=== PATIENT | male | born 1985 | race Caucasian/White ===

== ENCOUNTER 2020-09-23 20:24 | Emergency (ER) | payer OTHER ==
[~2020-09-23] VITALS: Ht 190.5 cm; Wt 100.2 kg
[~2020-09-23 20:24] MED LIST: DEXT10TA7 PO
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
[2020-09-23] MEDS ORDERED: AMOX1TAB12 PO (20:57)
[2020-09-23] MEDS ORDERED: HYDR-3237 PO (20:57)
[2020-09-23] MEDS ORDERED: DIPHENHYDRAMINE 25 MG CAPSULE PO ONE (21:00)
[2020-09-23] MEDS ORDERED: HYDROmorphone 1 MG/ML, 1ML INJ IM ONE (21:00)
[2020-09-23] MEDS ORDERED: HYDROmorphone 1 MG/ML, 1ML INJ ONE (21:01)
[2020-09-23] MEDS ORDERED: DIPHENHYDRAMINE 25 MG CAPSULE ONE (21:01)
--- NOTE | 2020-09-23 21:11 | NUR ---
BENADRYL AND DILAUDID GIVEN PER EMAR.
--- NOTE | 2020-09-23 22:02 | NUR ---
PER SPOUSE, PT HAS DECREASED PAIN. PT CURRENTLY SLEEPING; RESP EVEN UNLABORED.
--- NOTE | 2020-09-23 22:05 | NUR ---
PT AWAITING DISCHARGE. PT ENDORSED TO BRIAN JAMES
[2020-09-23 22:28] VITALS: BP 135/74
== END 2020-09-23 22:31 | disposition home or self-care (01) ==
LOC: ED 21:28
DX: S61.431A Puncture wound without foreign body of right hand, initial encounter (principal); W22.8XXA Striking against or struck by other objects, initial encounter; Y93.89 Activity, other specified; Y92.009 Unspecified place in unspecified non-institutional (private) residence as the place of occurrence of the external cause; Y99.8 Other external cause status
CPT/HCPCS: 73130; 96372; 99283; J1170; Q0163

== ENCOUNTER 2020-09-25 11:58 | Inpatient (IN) | payer OTHER ==
[~2020-09-25] VITALS: Ht 190.5 cm; Wt 101.0 kg
[~2020-09-25 11:58] MED LIST changes: +AMOX1TAB12 PO; +HYDR-3237 PO
[2020-09-25] MEDS ORDERED: SODIUM CHLORIDE FLUSH 10ML SYR IVF ONE (12:30)
[2020-09-25 13:15] LABS: BASOPHILS % (AUTO) 0 % (0-1); EOSINOPHILS % (AUTO) 1 % (1-7); LYMPHOCYTES % (AUTO) 17 % (22-44); MEAN CORPUSCULAR HEMOGLOBIN 32.2 pg (27.5-34.5); MEAN CORPUSCULAR HGB CONC 35.1 g/dL (33.2-36.2); MEAN PLATELET VOLUME 8.9 fL (7.4-10.4); MONOCYTES % (AUTO) 8 % (2-9); NEUTROPHILS % (AUTO) 74 % (42-75); PLATELET COUNT 236 x10^3/uL (130-400); RED BLOOD COUNT 4.91 x10^6/uL (4.38-5.82); RED CELL DISTRIBUTION WIDTH 12.4 % (9.4-14.8)
[2020-09-25 13:17] LABS: MD NO
[2020-09-25 13:23] LABS: ANION GAP 5 mmol/L (5-15); CHLORIDE 107 mmol/L (98-107); CREATININE 0.98 mg/dL (0.7-1.3)
--- NOTE | 2020-09-25 14:15 | NUR ---
TRUNG RN: REVITAL, VERBALIZED NO NEEDS AT THIS TIME
--- NOTE | 2020-09-25 17:27 | NUR ---
PT HOLDING OFF ON XRAY AT THIS TIME; PT HAD XRAY OF HAND ON FRIDAY; REDNESS & SWELLING HAS GOTTEN WORSE SINCE THEN
[2020-09-25] MEDS ORDERED: MORPHINE SULFATE 4 MG/ML, 1ML IVPush PRN (19:00)
[2020-09-25] MEDS ORDERED: SODIUM CHLORIDE 0.9% 1,000ML IVBOLUS ONE (19:00)
[2020-09-25] MEDS ORDERED: ONDANSETRON 2MG/ML, 2ML IVPush ONE (19:00)
[2020-09-25] MEDS ORDERED: AMPICILLIN/SULBACTAM 3 GM in SODIUM CHLORIDE 0.9% 100 ML IV ONE (19:00)
[2020-09-25] MEDS ORDERED: VANCOMYCIN PER PHARMACY MC ONE (19:00)
[2020-09-25] MEDS ORDERED: VANCOMYCIN 2,000 MG in SODIUM CHLORIDE 0.9% 500 ML IV ONE (19:00)
--- NOTE | 2020-09-25 19:16 | NUR ---
Report to BRIAN Cordova
[2020-09-25] MEDS ORDERED: MORPHINE SULFATE 4 MG/ML, 1ML ONE (19:28)
[2020-09-25] MEDS ORDERED: ONDANSETRON 2MG/ML, 2ML ONE ×2 (19:28→21:20)
[2020-09-25] MEDS ORDERED: PROMETHAZINE 25 MG/ML, 1ML IVPush PRN (20:00)
[2020-09-25] MEDS ORDERED: hydrALAzine 20 MG/ML, 1ML IV PRN (20:00)
[2020-09-25] MEDS ORDERED: FENTANYL PF 100 MCG/2ML IV PRN (20:00)
[2020-09-25] MEDS ORDERED: HALOPERIDOL 5 MG/ML IV PRN (20:00)
[2020-09-25] MEDS ORDERED: MEPERIDINE/PF 25MG/0.5ML IVPush PRN (20:00)
[2020-09-25] MEDS ORDERED: LABETALOL 5MG/ML, 20ML IV PRN (20:00)
[2020-09-25] MEDS ORDERED: OXYcodone 5 MG/5 ML ORAL.SOL UDC PO PRN ×2 (20:00→23:45)
[2020-09-25] MEDS ORDERED: HYDROmorphone 1 MG/ML, 1ML INJ IVPush PRN (20:00)
[2020-09-25] MEDS ORDERED: DIPHENHYDRAMINE 50 MG/ML, 1ML IVPush PRN (20:00)
[2020-09-25] MEDS ORDERED: HYDROmorphone 1 MG/ML, 1ML INJ ONE (20:08)
[2020-09-25] MEDS ORDERED: VANCOMYCIN PER PHARMACY MC PRN (20:30)
[2020-09-25] MEDS ORDERED: HYDROmorphone 1 MG/ML, 1ML INJ IV ONE (20:30)
[2020-09-25] MEDS ORDERED: MIDAZOLAM 1 MG/ML, 2ML ONE (20:48)
[2020-09-25] MEDS ORDERED: FENTANYL PF 250 MCG/5ML ONE (20:48)
[2020-09-25] MEDS ORDERED: CEFAZOLIN 1,000 MG ONE (21:20)
[2020-09-25] MEDS ORDERED: PROPOFOL 10 MG/ML, 20ML ONE (21:20)
[2020-09-25] MEDS ORDERED: DEXAMETHASONE 4 MG/ML, 1ML ONE (21:20)
[2020-09-25] MEDS ORDERED: PHARMACOKINETIC CONSULTATION MC ONE (21:30)
[2020-09-25] MEDS ORDERED: PHARMACOKINETIC MONITORING MC PRN (21:30)
[2020-09-25 22:59] VITALS: BP 132/81
[2020-09-25] MEDS ORDERED: HYDROmorphone 2 MG/ML, 1ML IVPush PRN (23:30)
[2020-09-25] MEDS: KETOROLAC 30 MG/1 ML IM SCH (23:44)
[2020-09-25] MEDS ORDERED: CEFAZOLIN PMX 2GM/50ML 50 ML IVPB SCH (23:45)
[2020-09-25] MEDS ORDERED: HYDROcodone/APAP 7.5-325MG/15ML UDC PO PRN (23:45)
[2020-09-25] MEDS ORDERED: ONDANSETRON 2MG/ML, 2ML IV PRN (23:45)
[2020-09-26 00:01] VITALS: BP 120/71
[2020-09-26] MEDS: CEFAZOLIN PMX 2GM/50ML 50 ML IVPB SCH ×4 (00:16→23:57)
[2020-09-26] MEDS ORDERED: HYDROmorphone 2 MG/ML, 1ML IVPush PRN (01:00)
[2020-09-26] MEDS ORDERED: ONDANSETRON ODT 4 MG PO PRN (01:00)
[2020-09-26] MEDS ORDERED: AMPICILLIN/SULBACTAM 3 GM in SODIUM CHLORIDE 0.9% 100 ML IV SCH (01:00)
[2020-09-26] MEDS ORDERED: MELATONIN 5 MG TABLET PO PRN (01:00)
[2020-09-26] MEDS ORDERED: BISACODYL 10 MG SUPP PR PRN (01:00)
[2020-09-26] MEDS ORDERED: ACETAMINOPHEN 325 MG TABLET PO PRN (01:00)
[2020-09-26 04:13] VITALS: BP 112/66
[2020-09-26 07:41] VITALS: BP 102/56
[2020-09-26] MEDS: DOCUSATE 100 MG CAPSULE PO SCH ×2 (07:41→21:00)
[2020-09-26] MEDS: KETOROLAC 30 MG/1 ML IM SCH ×2 (07:41→16:13)
[2020-09-26] MEDS: VANCOMYCIN 1,900 MG in SODIUM CHLORIDE 0.9% 250 ML IV SCH ×2 (09:16→17:19)
[2020-09-26] MEDS ORDERED: VANCOMYCIN 1,900 MG in SODIUM CHLORIDE 0.9% 250 ML IV SCH (09:30)
[2020-09-26 12:48] VITALS: BP 121/68
[2020-09-26] MEDS: ENOXAPARIN 40 MG/0.4 ML SQ SCH (16:54)
[2020-09-26 18:46] VITALS: BP 116/62
[2020-09-27] MEDS: VANCOMYCIN 1,900 MG in SODIUM CHLORIDE 0.9% 250 ML IV SCH ×3 (01:12→17:09)
[2020-09-27 04:00] VITALS: BP 107/64
[2020-09-27 06:05] LABS: BASOPHILS % (AUTO) 1 % (0-1); EOSINOPHILS % (AUTO) 2 % (1-7); LYMPHOCYTES % (AUTO) 41 % (22-44); MEAN CORPUSCULAR HEMOGLOBIN 31.3 pg (27.5-34.5); MEAN CORPUSCULAR HGB CONC 33.8 g/dL (33.2-36.2); MEAN PLATELET VOLUME 9.1 fL (7.4-10.4); MONOCYTES % (AUTO) 6 % (2-9); NEUTROPHILS % (AUTO) 50 % (42-75); PLATELET COUNT 214 x10^3/uL (130-400); RED BLOOD COUNT 4.23 x10^6/uL (4.38-5.82); RED CELL DISTRIBUTION WIDTH 12.5 % (9.4-14.8)
[2020-09-27 06:08] LABS: MD NO
[2020-09-27 06:16] LABS: CHLORIDE 113 mmol/L (98-107)
[2020-09-27 06:25] LABS: ALANINE AMINOTRANSFERASE 26 U/L (12-78); ALKALINE PHOSPHATASE 44 U/L (45-117); ANION GAP 4 mmol/L (5-15); BILIRUBIN,TOTAL 0.5 mg/dL (0.2-1.0); CALCIUM 8.4 mg/dL (8.5-10.1); CREATININE 0.87 mg/dL (0.7-1.3); TOTAL PROTEIN 6.1 g/dL (6.4-8.2)
[2020-09-27] MEDS: CEFAZOLIN PMX 2GM/50ML 50 ML IVPB SCH ×3 (08:10→23:44)
[2020-09-27] MEDS: DOCUSATE 100 MG CAPSULE PO SCH ×2 (08:10→21:00)
[2020-09-27 08:23] VITALS: BP 118/73
[2020-09-27] MEDS ORDERED: CHOLECALCIFEROL 5,000u TAB ONE (11:52)
[2020-09-27 14:07] VITALS: BP 125/74
[2020-09-27] MEDS: ENOXAPARIN 40 MG/0.4 ML SQ SCH (15:44)
[2020-09-27 19:10] VITALS: BP 115/65
[2020-09-28] MEDS: VANCOMYCIN 1,900 MG in SODIUM CHLORIDE 0.9% 250 ML IV SCH ×2 (01:12→09:17)
[2020-09-28 02:39] VITALS: BP 117/71
[2020-09-28 06:23] LABS: BASOPHILS % (AUTO) 1 % (0-1); EOSINOPHILS % (AUTO) 4 % (1-7); LYMPHOCYTES % (AUTO) 46 % (22-44); MEAN CORPUSCULAR HEMOGLOBIN 31.7 pg (27.5-34.5); MEAN CORPUSCULAR HGB CONC 34.6 g/dL (33.2-36.2); MEAN PLATELET VOLUME 8.6 fL (7.4-10.4); MONOCYTES % (AUTO) 7 % (2-9); NEUTROPHILS % (AUTO) 42 % (42-75); PLATELET COUNT 246 x10^3/uL (130-400); RED BLOOD COUNT 4.45 x10^6/uL (4.38-5.82); RED CELL DISTRIBUTION WIDTH 12.4 % (9.4-14.8)
[2020-09-28 06:24] LABS: MD NO
[2020-09-28 06:33] LABS: ALBUMIN 3.2 g/dL (3.4-5.0); ANION GAP 5 mmol/L (5-15); CALCIUM 8.5 mg/dL (8.5-10.1); CHLORIDE 109 mmol/L (98-107)
[2020-09-28 06:36] LABS: ALANINE AMINOTRANSFERASE 38 U/L (12-78); ALKALINE PHOSPHATASE 49 U/L (45-117); BILIRUBIN,TOTAL 0.6 mg/dL (0.2-1.0); CREATININE 0.84 mg/dL (0.7-1.3); TOTAL PROTEIN 6.2 g/dL (6.4-8.2)
[2020-09-28 07:46] VITALS: BP 114/69
[2020-09-28] MEDS: CEFAZOLIN PMX 2GM/50ML 50 ML IVPB SCH (08:07)
[2020-09-28] MEDS: DOCUSATE 100 MG CAPSULE PO SCH ×2 (09:00→20:06)
[2020-09-28 13:06] VITALS: BP 102/74
[2020-09-28] MEDS: ERTAPENEM 1 GM in SODIUM CHLORIDE 0.9% 50 ML IV SCH (16:32)
[2020-09-28] MEDS: ENOXAPARIN 40 MG/0.4 ML SQ SCH (16:37)
[2020-09-28 19:06] VITALS: BP 108/69
[2020-09-29 01:36] VITALS: BP 111/69
[2020-09-29 07:10] VITALS: BP 119/72
[2020-09-29 07:12] LABS: ANION GAP 3 mmol/L (5-15); CHLORIDE 108 mmol/L (98-107); CREATININE 0.88 mg/dL (0.7-1.3)
[2020-09-29 07:13] LABS: BASOPHILS % (AUTO) 1 % (0-1); EOSINOPHILS % (AUTO) 3 % (1-7); LYMPHOCYTES % (AUTO) 36 % (22-44); MEAN CORPUSCULAR HEMOGLOBIN 31.9 pg (27.5-34.5); MEAN CORPUSCULAR HGB CONC 34.8 g/dL (33.2-36.2); MEAN PLATELET VOLUME 8.1 fL (7.4-10.4); MONOCYTES % (AUTO) 9 % (2-9); NEUTROPHILS % (AUTO) 51 % (42-75); PLATELET COUNT 275 x10^3/uL (130-400); RED BLOOD COUNT 4.77 x10^6/uL (4.38-5.82); RED CELL DISTRIBUTION WIDTH 12.3 % (9.4-14.8)
[2020-09-29 07:17] LABS: MD NO
[2020-09-29] MEDS: DOCUSATE 100 MG CAPSULE PO SCH (08:33)
[2020-09-29] MEDS: ERTAPENEM 1 GM in SODIUM CHLORIDE 0.9% 50 ML IV SCH (13:06)
[2020-09-29] MEDS ORDERED: ERTA1VIA IV (13:21)
== END 2020-09-29 14:45 | disposition home or self-care (01) | DRG 506 ==
LOC: ED 18:27 → EDIP 19:01 → 4NE 22:36 → DCLOUNGE 09-29 14:41
PROVIDERS: ADMIT Internal Medicine; ATTEND Internal Medicine
PROC: 0R9N0ZZ Drainage of Right Wrist Joint, Open Approach (ICD-10-PCS; principal; 2020-09-25 21:15)
PROC: 02HV33Z Insertion of Infusion Device into Superior Vena Cava, Percutaneous Approach (ICD-10-PCS; 2020-09-28)
PROC: B5181ZA Fluoroscopy of Superior Vena Cava using Low Osmolar Contrast, Guidance (ICD-10-PCS; 2020-09-28)
PROC: B548ZZA Ultrasonography of Superior Vena Cava, Guidance (ICD-10-PCS; 2020-09-28)
DX: M00.9 Pyogenic arthritis, unspecified (principal); Z20.828 Contact with and (suspected) exposure to other viral communicable diseases; S61.431A Puncture wound without foreign body of right hand, initial encounter; X58.XXXA Exposure to other specified factors, initial encounter; Y99.0 Civilian activity done for income or pay; Y92.89 Other specified places as the place of occurrence of the external cause
CPT/HCPCS: 36415; 36573; 80048; 80053; 80202; 83605; 83735; 84100; 84145; 85025; 85651; 86140; 87040; 87070; 87075; 87205; 87635; 99285; G0378; J0295; J0690; J1100; J1170; J1335; J1650; J1885; J2250; J2405; J2704; J3010; J3370; C1751; J2270; J7030; J7040; J7050